=== PATIENT | female | born 1995 | race Caucasian/White ===

== ENCOUNTER → 2016-12-05 | Outpatient (CLI) | payer BC, OTHER ==
[~2016-12-05] MED LIST: PRENTAB9 PO; ZOLO50TA PO
--- NOTE | 2016-12-05 23:28 | REP ---
Clinical: Anatomical evaluation. Comparison: 11/18/2016 . Findings: Examination demonstrates a single live intrauterine in transverse lie (head to maternal left side) presentation. motion is identified by technologist. Placenta is noted posteriorly and grade zero without evidence for placenta previa or abruption. Amniotic fluid volume is normal. Cervix measures 3.7 cm in length and appears closed. No evidence for nuchal cord. Gestational age by LMP 21 weeks 6 days with FERNANDO 04/11/2017 . Gestational age by current measurements 20 weeks 5 days with FERNANDO 04/19/2017 . FHR equals 150 beats per minute. BPD 4.9 20 weeks 5 days HC 18.5 20 weeks 6 days AC 16.3 21 weeks 2 days FL 3.5 21 weeks 0 days HC/AC ratio 1.14 Estimated weight 401 grams ( 22nd percentile). Anatomical assessment demonstrates normal structures including cranium, choroid plexus, cavum, cerebellum/posterior fossa, facial features, lungs, four-chamber heart/ventricular outflow tracts, diaphragm, stomach, cord insertion/three-vessel cord, kidneys/bladder, spine, and extremities. Impression: Live intrauterine in transverse lie. Normal complete anatomical assessment. Signed by Marco Antonio Yee MD 12/05/2016 11:20 P
== END ==
LOC: M WHC 10:29
PROVIDERS: ATTEND Advanced Practice Midwife
DX: Z34.82 Encounter for supervision of other normal pregnancy, second trimester (principal)

== ENCOUNTER 2017-01-20 12:45 | Outpatient (CLI) | payer BC, OTHER ==
[~2017-01-20] VITALS: Ht 165.1 cm; Wt 82.0 kg
[2017-01-20 13:19] VITALS: BP 118/66
[2017-01-20] MEDS ORDERED: PRENTAB9 PO (14:41)
== END 2017-01-20 13:51 | disposition home or self-care (01) ==
LOC: M LDO 12:45
PROVIDERS: ATTEND Advanced Practice Midwife
DX: O26.892 Other specified pregnancy related conditions, second trimester (principal); Z3A.23 23 weeks gestation of pregnancy

== ENCOUNTER 2017-02-04 20:39 | Outpatient (CLI) | payer BC, OTHER ==
[~2017-02-04] VITALS: Ht 165.1 cm; Wt 84.0 kg
[~2017-02-04 20:39] MED LIST changes: -ZOLO50TA PO
[2017-02-04 21:27] VITALS: BP 121/73
[2017-02-04 21:50] VITALS: BP 113/63
[2017-02-04 22:05] VITALS: BP 112/64
== END 2017-02-04 22:12 | disposition home or self-care (01) ==
LOC: M LDO 20:39
PROVIDERS: ATTEND Specialist
DX: O26.893 Other specified pregnancy related conditions, third trimester (principal); Z3A.30 30 weeks gestation of pregnancy

== ENCOUNTER → 2017-02-05 | Outpatient (CLI) | payer BC, OTHER ==
[~2017-02-05] MED LIST changes: +ZOLO50TA PO
[2017-02-05 15:42] LABS: MEAN CORPUSCULAR HEMOGLOBIN 31.2 pg (27.0-33.0); MEAN CORPUSCULAR HGB CONC 32.8 g/dl (32.0-36.5); RED CELL DISTRIBUTION WIDTH 12.4 % (11.5-14.5); WHITE BLOOD COUNT 11.1 K/mm3 (4.0-10.0)
== END ==
LOC: M LAB 14:23
PROVIDERS: ATTEND Obstetrics & Gynecology
DX: Z36 Encounter for antenatal screening of mother (principal); Z3A.00 Weeks of gestation of pregnancy not specified

== ENCOUNTER 2017-02-08 00:18 | Outpatient (CLI) | payer BC, OTHER ==
[~2017-02-08] VITALS: Ht 162.6 cm; Wt 80.0 kg
[~2017-02-08 00:18] MED LIST changes: -ZOLO50TA PO
[2017-02-08 01:00] VITALS: BP 110/68
== END 2017-02-08 01:43 | disposition home or self-care (01) ==
LOC: M LDO 00:18
PROVIDERS: ATTEND Obstetrics & Gynecology
DX: O47.03 False labor before 37 completed weeks of gestation, third trimester (principal); Z3A.31 31 weeks gestation of pregnancy

== ENCOUNTER 2017-02-19 23:08 | Outpatient (CLI) | payer BC, OTHER ==
[~2017-02-19] VITALS: Ht 162.6 cm; Wt 83.0 kg
[2017-02-19] MEDS ORDERED: ZOLO50TA PO (23:15)
[2017-02-19 23:27] VITALS: BP 117/67
== END 2017-02-20 00:18 | disposition home or self-care (01) ==
LOC: M LDO 23:08
PROVIDERS: ATTEND Obstetrics & Gynecology
DX: O47.03 False labor before 37 completed weeks of gestation, third trimester (principal); Z3A.33 33 weeks gestation of pregnancy

== ENCOUNTER 2017-03-02 23:35 | Outpatient (CLI) | payer OTHER ==
[~2017-03-02] VITALS: Ht 162.6 cm; Wt 84.0 kg
[~2017-03-02 23:35] MED LIST changes: +ZOLO50TA PO
[2017-03-02 23:46] VITALS: BP 122/74
[2017-03-03 00:36] LABS: BASO % 0.4 % (0.0-1.0); EOS # 0.2 K/mm3 (0.0-0.50); EOS % 1.5 % (0.0-3.0); LARGE UNSTAINED CELL # 0.2 K/mm3 (0.0-0.4); LARGE UNSTAINED CELL % 1.4 % (0.0-4.0); LYMPH # 2.6 K/mm3 (1.5-6.5); LYMPH % 22.2 % (24.0-44.0); MEAN CORPUSCULAR HEMOGLOBIN 31.1 pg (27.0-33.0); MEAN CORPUSCULAR HGB CONC 32.6 g/dl (32.0-36.5); MEAN CORPUSCULAR VOLUME 95.2 fl (80.0-96.0); MONO # 0.5 K/mm3 (0.0-0.8); MONO % 4.9 % (0.0-5.0); NEUTROPHILS # 7.7 K/mm3 (1.8-7.7); NEUTROPHILS % 69.7 % (36.0-66.0); PLATELET COUNT, AUTOMATED 342 k/mm3 (150-450); RED CELL DISTRIBUTION WIDTH 12.6 % (11.5-14.5)
[2017-03-03 00:44] LABS: INR 0.99
[2017-03-03] MEDS ORDERED: ACETAMINOPHEN 500 MG TAB PO PRN (01:15)
--- NOTE | 2017-03-03 07:58 | REPUSA ---
CLINICAL HISTORY: Pelvic pain. Fall. TECHNIQUE: Realtime sonographic images were obtained in multiple projections via TA approach. The exa mination was performed by the music promoter and still images were submitted for interpretation. COMMENTS: Single, live intrauterine gestation. The estimated gestation age 33 weeks and 2 days. heart rate 157 beats per minute. Amniotic fluid index 10.2 cm. Biophysical profile 07/08. Unremarkable Doppler evaluation of the umbilical cord. Estimated weight is 2053 g. IMPRESSION: Single, live intrauterine gestation. No abnormality seen. Thank you for your kind referral of this patient.
== END 2017-03-03 04:09 | disposition home or self-care (01) ==
LOC: M LDO 23:35
PROVIDERS: ATTEND Advanced Practice Midwife
DX: O99.89 Other specified diseases and conditions complicating pregnancy, childbirth and the puerperium (principal); R10.9 Unspecified abdominal pain; R42 Dizziness and giddiness; W01.198A Fall on same level from slipping, tripping and stumbling with subsequent striking against other object, initial encounter; Y92.099 Unspecified place in other non-institutional residence as the place of occurrence of the external cause; Y93.9 Activity, unspecified; Y99.9 Unspecified external cause status; Z3A.34 34 weeks gestation of pregnancy

== ENCOUNTER 2017-03-08 01:40 | Outpatient (CLI) | payer OTHER ==
[~2017-03-08] VITALS: Ht 162.6 cm; Wt 85.0 kg
[2017-03-08 01:53] VITALS: BP 119/74
[2017-03-08] MEDS ORDERED: PRENTAB9 PO (02:51)
== END 2017-03-08 03:10 | disposition home or self-care (01) ==
LOC: M LDO 01:40
PROVIDERS: ATTEND Obstetrics & Gynecology
DX: O47.03 False labor before 37 completed weeks of gestation, third trimester (principal); Z3A.35 35 weeks gestation of pregnancy

== ENCOUNTER → 2017-03-11 | Outpatient (CLI) | payer BC, OTHER | LOC: M LAB 08:24 | PROVIDERS: ATTEND Obstetrics & Gynecology | DX: Z34.83 Encounter for supervision of other normal pregnancy, third trimester (principal) ==

== ENCOUNTER 2017-03-20 20:13 | Outpatient (CLI) | payer BC, OTHER ==
[~2017-03-20] VITALS: Ht 165.1 cm; Wt 85.0 kg
[~2017-03-20 20:13] MED LIST changes: +PROZ20CA11 PO
[2017-03-20 20:31] VITALS: BP 125/70
[2017-03-20 21:43] VITALS: BP 112/67
== END 2017-03-20 22:00 | disposition home or self-care (01) ==
LOC: M LDO 20:13
PROVIDERS: ATTEND Obstetrics & Gynecology
DX: O47.03 False labor before 37 completed weeks of gestation, third trimester (principal); Z3A.36 36 weeks gestation of pregnancy

== ENCOUNTER → 2017-03-21 | Outpatient (REF) | payer BC, OTHER | LOC: M LAB REF 12:58 | PROVIDERS: ATTEND Advanced Practice Midwife | DX: Z36 Encounter for antenatal screening of mother (principal); Z3A.00 Weeks of gestation of pregnancy not specified ==

== ENCOUNTER 2017-03-30 18:55 | Outpatient (CLI) | payer BC, OTHER ==
[~2017-03-30] VITALS: Ht 165.1 cm; Wt 85.0 kg
[2017-03-30 19:09] VITALS: BP 120/73
== END 2017-03-30 21:05 | disposition home or self-care (01) ==
LOC: M LDO 18:55
PROVIDERS: ATTEND Advanced Practice Midwife
DX: O36.8130 Decreased fetal movements, third trimester, not applicable or unspecified (principal); Z3A.38 38 weeks gestation of pregnancy

== ENCOUNTER 2017-04-02 03:13 | Outpatient (CLI) | payer BC, OTHER ==
[~2017-04-02] VITALS: Ht 165.1 cm; Wt 86.0 kg
[2017-04-02 03:30] VITALS: BP 122/70
[2017-04-02 06:45] VITALS: BP 118/79
[2017-04-03] MEDS ORDERED: ACET50TA PO (18:00)
[2017-04-03] MEDS ORDERED: IBUP-1114 PO (18:02)
== END 2017-04-02 06:50 | disposition home or self-care (01) ==
LOC: M LDO 03:13
PROVIDERS: ATTEND Obstetrics & Gynecology
DX: O62.0 Primary inadequate contractions (principal); Z3A.38 38 weeks gestation of pregnancy

== ENCOUNTER 2017-04-02 09:07 | Inpatient (IN) | payer BC, OTHER ==
[~2017-04-02] VITALS: Ht 165.1 cm; Wt 86.0 kg
[2017-04-02] VITALS (9 sets, daily range): BP systolic 118–159; BP diastolic 67–95
[2017-04-02] MEDS ORDERED: RHOGAM 300 MCG (1500 IU) INJ (J2790) IM SCH (10:15)
[2017-04-02] MEDS ORDERED: DOCUSATE SODIUM 100 MG CAP PO PRN (10:15)
[2017-04-02] MEDS ORDERED: ONDANSETRON 4MG/2ML VIAL (J2405) IV PRN (10:15)
[2017-04-02] MEDS ORDERED: DIBUCAINE 1% OINTMENT 30GM TOP PRN (10:15)
[2017-04-02] MEDS ORDERED: ACETAMINOPHEN 500 MG TAB PO PRN (10:15)
[2017-04-02] MEDS ORDERED: MEASLES,MUMPS,RUBELLA VACCINE INJ (MMR-II) (90707) SC SCH (10:15)
[2017-04-02] MEDS ORDERED: METHYLERGONOVINE MALEATE 0.2 MG TAB PO PRN (10:15)
[2017-04-02] MEDS ORDERED: OXYTOCIN DRIP 30 UNITS in APPROPRIATE DILUENT 1 EA IV ONE (10:30)
--- NOTE | 2017-04-02 10:31 | DN ---
DATE: 04/02/2017 PREDELIVERY DIAGNOSIS: 38 and 5/7 weeks gestation, active labor. POSTDELIVERY DIAGNOSIS: Delivered. PROCEDURE: Spontaneous vaginal delivery. POCKET SETTER: Dr. Rene Spain ANESTHESIA: None. ESTIMATED BLOOD LOSS: 300 mL. FINDINGS: Viable female infant, weight unknown at the time of dictation. DELIVERY SUMMARY: After a short second stage, the patient had spontaneous rupture of membranes. She very quickly progressed to full term spontaneous delivery of a viable female infant. Nuchal cord times three was reduced. Infant cried spontaneously and was handed to the mother. Cord was doubly clamped and cut. Placenta delivered spontaneously and appeared to be intact. The patient received IV Pitocin after delivery of the placenta. There were no vaginal lacerations present. Sponge counts were correct.
[2017-04-02 10:37] LABS: BASO # 0.1 K/mm3 (0.0-0.2); BASO % 0.4 % (0.0-1.0); EOS # 0.1 K/mm3 (0.0-0.50); EOS % 0.9 % (0.0-3.0); LARGE UNSTAINED CELL # 0.2 K/mm3 (0.0-0.4); LARGE UNSTAINED CELL % 1.4 % (0.0-4.0); LYMPH # 2.9 K/mm3 (1.5-6.5); LYMPH % 19.8 % (24.0-44.0); MEAN CORPUSCULAR HEMOGLOBIN 31.7 pg (27.0-33.0); MEAN CORPUSCULAR HGB CONC 33.8 g/dl (32.0-36.5); MEAN CORPUSCULAR VOLUME 93.8 fl (80.0-96.0); MONO # 0.6 K/mm3 (0.0-0.8); MONO % 4.5 % (0.0-5.0); PLATELET COUNT, AUTOMATED 351 k/mm3 (150-450); RED CELL DISTRIBUTION WIDTH 13.2 % (11.5-14.5); WHITE BLOOD COUNT 13.8 K/mm3 (4.0-10.0)
[2017-04-02] MEDS: IBUPROFEN 800 MG TAB PO PRN ×2 (11:04→18:35)
--- NOTE | 2017-04-02 12:19 | HPE ---
DATE OF ADMISSION: 04/02/2017 21-year-old G2, P1 female, 38-5/7 weeks gestation by LMP consistent with 12 week ultrasound, EDC 04/11/2017, presents with regular contractions every 2-3 minutes for the last several hours. Contractions have increased in intensity. COURSE: Patient initiated care at 12 weeks gestation 10/03/2016. Her first trimester blood pressure is 109/60. Her course was significant for worsening depression and anxiety. This was a pre-existing condition. The remainder of course is unremarkable. OBSTETRICAL HISTORY: March 2015 39 week vaginal delivery, 7 pound 4 ounce female infant, no complications. PAST MEDICAL HISTORY: Anxiety and depression. SURGICAL HISTORY: Cyst removed from neck. ALLERGIES: PENICILLIN, TRAMADOL. SOCIAL HISTORY: The father of the baby is involved. Patient smoked occasional cigarette during . She denies alcohol or drug use during . FAMILY HISTORY: Noncontributory. PHYSICAL EXAMINATION: Blood pressure 114/70, weight 195. She appears extremely uncomfortable. Head and neck exam normal. Lungs clear. Heart: Regular rate and rhythm. Abdomen: Nontender, gravid. heart sounds category 1. Cervix 5 cm, 100% effaced, -1 station, vertex, intact. Extremities: Nontender. LABS: Blood type is O positive. Rubella equivocal. RPR nonreactive. Group B Streptococcus (GBS) negative on 03/21/2017. ASSESSMENT: 21-year-old G2, P1 female 38-5/7 weeks gestation who presents in active labor. Patient is admitted on 04/02/2017.
[2017-04-02] MEDS ORDERED: OXYTOCIN INJ 10 UNITS/ML VIAL (J2590) IV STA (12:20)
[2017-04-02 16:48] LABS: METHADONE URINE NEGATIVE (NEGATIVE)
[2017-04-03 06:31] VITALS: BP 118/66
[2017-04-03 09:00] VITALS: BP 104/71
[2017-04-03] MEDS ORDERED: PRENATAL VITAMIN TAB PO SCH (09:00)
[2017-04-03] MEDS: IBUPROFEN 800 MG TAB PO PRN (09:25)
[2017-04-03 17:15] VITALS: BP 118/72
[2017-04-03 18:00] VITALS: BP 118/72
[2017-04-03] MEDS ORDERED: ACET50TA PO (18:00)
[2017-04-03] MEDS ORDERED: IBUP-1114 PO (18:02)
[2017-04-03] MEDS ORDERED: ADACEL/BOOSTRIX VACCINE (DIPHTH/PERTUSS/ACELL/TETANUS)0.5ML SYR (90715) IM ONE (19:30)
== END 2017-04-03 19:50 | disposition home or self-care (01) | DRG 560 ==
LOC: M LDO 09:07 → M LDI 09:18 → M OBS 12:59
PROVIDERS: ADMIT Specialist; ATTEND Specialist
PROC: 10E0XZZ Delivery of Products of Conception, External Approach (ICD-10-PCS; principal; 2017-04-02)
DX: O99.344 Other mental disorders complicating childbirth (principal); F32.9 Major depressive disorder, single episode, unspecified; F41.9 Anxiety disorder, unspecified; Z3A.38 38 weeks gestation of pregnancy; O99.334 Smoking (tobacco) complicating childbirth; F17.210 Nicotine dependence, cigarettes, uncomplicated; O69.82X0 Labor and delivery complicated by other cord entanglement, without compression, not applicable or unspecified; Z37.0 Single live birth

== ENCOUNTER 2017-04-10 23:53 | Emergency (ER) | payer BC, OTHER ==
[~2017-04-10] VITALS: Ht 165.1 cm; Wt 81.6 kg
[~2017-04-10 23:53] MED LIST changes: +ACET50TA PO; +IBUP-1114 PO
[2017-04-11] MEDS ORDERED: ONDANSETRON 4MG/2ML VIAL (J2405) IV ONE ×2 (01:00→06:30)
[2017-04-11] MEDS ORDERED: NS 1,000 ML IV ONE ×2 (01:00→02:30)
[2017-04-11 01:05] LABS: CONTROL LINE UCG INT CTR LINE PRESENT
[2017-04-11 01:36] LABS: BASO # 0.1 K/mm3 (0.0-0.2); BASO % 0.9 % (0.0-1.0); EOS # 0.2 K/mm3 (0.0-0.50); EOS % 2.3 % (0.0-3.0); LARGE UNSTAINED CELL # 0.1 K/mm3 (0.0-0.4); LARGE UNSTAINED CELL % 1.7 % (0.0-4.0); LYMPH # 2.4 K/mm3 (1.5-6.5); LYMPH % 31.3 % (24.0-44.0); MEAN CORPUSCULAR HEMOGLOBIN 31.2 pg (27.0-33.0); MEAN CORPUSCULAR VOLUME 97.4 fl (80.0-96.0); MONO # 0.3 K/mm3 (0.0-0.8); MONO % 4.3 % (0.0-5.0); NEUTROPHILS # 4.6 K/mm3 (1.8-7.7); NEUTROPHILS % 59.5 % (36.0-66.0); PLATELET COUNT, AUTOMATED 452 k/mm3 (150-450); RED CELL DISTRIBUTION WIDTH 12.6 % (11.5-14.5); WHITE BLOOD COUNT 7.7 K/mm3 (4.0-10.0)
[2017-04-11 01:59] LABS: ALBUMIN 3.3 GM/DL (3.2-5.2); ALBUMIN/GLOBULIN RATIO 0.92 (1.00-1.93); ALKALINE PHOSPHATASE 106 U/L (45-117); ALT/SGPT 18 U/L (12-78); ANION GAP 6 MEQ/L (8-16); AST/SGOT 8 U/L (15-37); BILIRUBIN,DIRECT < 0.1 MG/DL (0.0-0.2); BILIRUBIN,TOTAL 0.3 MG/DL (0.2-1.0); BLOOD UREA NITROGEN 13 MG/DL (7-18); CALCIUM LEVEL 8.7 MG/DL (8.5-10.1); CARBON DIOXIDE LEVEL 27 MEQ/L (21-32); CHLORIDE LEVEL 110 MEQ/L (98-107); CREATININE FOR GFR 0.65 MG/DL (0.55-1.02); GLOMERULAR FILTRATION RATE > 60.0 (>60); GLUCOSE, FASTING 77 MG/DL (70-105); POTASSIUM SERUM 3.8 MEQ/L (3.5-5.1); SODIUM LEVEL 143 MEQ/L (136-145); TOTAL PROTEIN 6.9 GM/DL (6.4-8.2)
[2017-04-11] MEDS ORDERED: KETOROLAC 30 MG/ML VIAL (J1885) IV ONE (02:15)
--- NOTE | 2017-04-11 02:50 | REPUSA ---
CLINICAL HISTORY: Abdominal pain. TECHNIQUE: Multiple axial, sagittal and coronal CT images were obtained through the abdomen and pelvi s without administration of oral or IV contrast material. COMMENTS: The liver is of uniform attenuation without mass or defect. There is no intra or extrahepatic biliary ductal dilatation. The spleen is normal. The gallbladder is within normal limits. The pancreas is of normal contour and attenuation characteristics. There is no evidence of adrenal mass. Bilateral nonobstructing renal stones ranging in size between 2 and 4 mm. 4.2 mm obstructing stone of the left ureter at L3 level. Mild left hydroureteronephrosis. There is no evidence for appendicitis. There is no bowel wall thickening. No evidence for small or la rge bowel obstruction. There is no evidence of abdominal ascites or lymphadenopathy. There is no evidence of intrinsic or extrinsic bladder mass. Thickening of the lower of the bladder. There is no pelvic ascites or lymphadenopathy. Fat containing umbilical hernia without incarceration. Enlarged uterus. Images of the lung bases show no evidence of pleural or parenchymal mass. There are no pleural effusi ons. The bony structures are free of lytic or blastic lesions. IMPRESSION: Bilateral nephrolithiasis. Obstructing stone of the proximal left ureter. Enlarged uterus. Thank you for your kind referral of this patient.
[2017-04-11] MEDS ORDERED: HYDROmorphone HCL 1 MG/ML SYRINGE (J1170) IV ONE ×2 (05:00→05:45)
[2017-04-11] MEDS ORDERED: ONDANSETRON 4MG/2ML VIAL (J2405) As Ordered ONE (06:22)
[2017-04-11] MEDS ORDERED: PERC5TAB6 PO (07:50)
[2017-04-11] MEDS ORDERED: FLOM5CAP PO (07:50)
--- NOTE | 2017-04-11 07:55 | SMCUROLCON ---
Urology Consultation General Date of Consultation 04/11/17 Reason For Consultation This patient is seen for Abd Pain. History of Present Illness This is a 21 y/o F w/ a PMH significant for nephrolithiasis (passed a stone 7 years ago) and uncomplicated vaginal delivery 7 days ago, who presented to the ER last night w/ acute onset left flank pain. A CT A/P was performed and was notable for a 3.4mm proximal left ureteral stone w/ mild hydronephrosis. No other stones were seen. She denies fevers or chills. She denies dysuria. She has mild nausea but no vomiting. They had some difficulty managing her pain o/n , but when I examined her she noted her pain was much better. Past Medical History Medical History see HPI Surgical Hstory cyst removal from neck Medications Current Medications Current Medications Home Med (Med Rec Complete!) ASDIRECTED XX ; Start 04/11/17 at 06:30; Stop 11/16 at 06:30; Status DC Allergies Allergies: Coded Allergies: Atropine (Verified Allergy, Intermediate, UNKNOWN, 03/20/17) RASH, FEVER & SYNCOPE Tramadol (Verified Allergy, Intermediate, UNKNOWN, 03/20/17) SEVERE VOMITING Hyoscyamine (Verified Allergy, Unknown, UNKNOWN, 03/20/17) RASH, FEVER & SYNCOPE Phenobarbital (Verified Allergy, Unknown, UNKNOWN, 03/20/17) RASH, FEVER & SYNCOPE Scopolamine (Verified Allergy, Unknown, UNKNOWN, 03/20/17) RASH, FEVER & SYNCOPE Penicillins (Verified Adverse Reaction, Intermediate, 03/20/17) HIVES Review of Systems General: Denies: Fatigue, Malaise Constitutional: Denies: Fever, Chills, Sweats, Weakness, Malaise Eyes: Denies: Pain, Vision change Skin: Denies: Rash, Lesions, Breakdown, Nail Changes Pulmonary: Denies: Dyspnea, Cough Cardiovascular: Denies Chest Pain, Denies Palpitations Gastrointestinal: Reports: Nausea, Abdominal Pain (mild left abdominal pain), Denies: Vomiting Genitourinary: Denies: Dysuria, Frequency, Incontinence, Hematuria Musculoskeletal: Reports: Back Pain (left flank pain) Neurological: Denies: Weakness, Numbness, Incoordination, Change in Speech Psych: Reports: Mood Normal Physical Examination General Exam: Alert, Cooperative, No Acute Distress ENT EXAM: Atraumatic Chest Exam: Clear to auscultation Heart Exam: Rate Normal, Regular Rhythm Abdomen Exam: Soft, Tenderness (mild left sided tenderness) Skin Exam: Nl turgor and temperature Neuro Exam: Normal Speech Psych Exam: Mental status NL, Mood NL Vital Signs/I&O Vital Signs Date Time Temp Pulse Resp B/P (MAP) Pulse Ox O2 Delivery O2 Flow Rate FiO2 04/11/17 07:31 70 16 106/59 (75) 99 Room Air 04/11/17 00:10 97.8 I&O- Last 24 Hours up to 6 AM 04/11/17 06:00 Intake Total 2000 ml Balance 2000 ml Laboratory Data 24H Labs Laboratory Tests 2 04/11/17 00:27: Urine Appearance CLEAR, Urine Color YELLOW, Urine pH 6.0, Urine Specific [place] 1.011, Urine Protein NEGATIVE, Urine Glucose (UA) NEGATIVE, Urine Ketones NEGATIVE, Urine Urobilinogen 0.2, Urine Bilirubin NEGATIVE, Urine Leukocyte Esterase NEGATIVE, Urine Blood 3+H, Urine Nitrite NEGATIVE, Urine WBC (Auto) 2, Urine RBC (Auto) TNTCH, Urine Hyaline Casts (Auto) 0, Urine Bacteria ( Auto) 1+H, Urine Squamous Epithelial Cells 0, Urine Mucus (Auto) SMALL, Urine Sperm (Auto) , Urine Test POSITIVEA 04/11/17 01:19: White Blood Count 7.7, Red Blood Count 4.05, Hemoglobin 12.6, Hematocrit 39.5, Mean Corpuscular Volume 97.4H, Mean Corpuscular Hemoglobin 31.2, Mean Corpuscular Hemoglobin Concent 32.0, Red Cell Distribution Width 12.6, Platelet Count 452H, Neutrophils (%) (Auto) 59.5, Lymphocytes (%) (Auto) 31.3, Monocytes (%) (Auto) 4.3, Eosinophils (%) (Auto) 2.3, Basophils (%) (Auto) 0.9, Neutrophils # (Auto) 4.6, Lymphocytes # (Auto) 2.4, Monocytes # (Auto) 0.3, Eosinophils # (Auto) 0.2, Basophils # (Auto) 0.1, Large Unclassified Cells % 1.7 , Large Unclassified Cells # 0.1, Anion Gap 6L, Glomerular Filtration Rate > 60.0, Calcium Level 8.7, Aspartate Amino Transf (AST/SGOT) 8L, Alanine Aminotransferase (ALT/SGPT) 18, Alkaline Phosphatase 106, Total Bilirubin 0.3, Direct Bilirubin < 0.1, Total Protein 6.9, Albumin 3.3, Albumin/Globulin Ratio 0.92L, Lipase 120 CBC/BMP Laboratory Tests 04/11/17 01:19 Red Blood Count 4.05, Mean Corpuscular Volume 97.4 H, Mean Corpuscular Hemoglobin 31.2, Mean Corpuscular Hemoglobin Concent 32.0, Red Cell Distribution Width 12.6, Neutrophils (%) (Auto) 59.5, Lymphocytes (%) (Auto) 31.3, Monocytes (%) (Auto) 4.3, Eosinophils (%) (Auto) 2.3, Basophils (%) (Auto ) 0.9, Neutrophils # (Auto) 4.6, Lymphocytes # (Auto) 2.4, Monocytes # (Auto) 0.3, Eosinophils # (Auto) 0.2, Basophils # (Auto) 0.1 Microbiology Microbiology 04/11/17 Urine Culture, Received Pending Assessment This is a 21 y/o F w/ a 3.4mm proximal left ureteral stone w/ mild hydro. Her pain is controlled. Her WBC and UA do not appear concerning for an infection. Her Cr is near its baseline. I discussed the likelihood that she can pass this stone w/o surgical intervention. I recommended aggressive hydration and that she start taking flomax daily and pain medication as needed. I also recommended that she strain her urine. She is agreeable and wants to go home. Plan - ok to discharge patient home - please send home w/ flomax to take for 2 wks and percocet to take prn - encourage the patient to drink plenty of water - please provide a urine strainer - the urology office will schedule a follow up appt for the patient to be seen in 1-2 weeks KEO MARK MD April 11, 2017 07:55
[2017-04-11 08:06] VITALS: BP 107/64
== END 2017-04-11 08:07 | disposition home or self-care (01) ==
LOC: M ED 04-11 02:04
DX: O90.89 Other complications of the puerperium, not elsewhere classified (principal); N20.1 Calculus of ureter; N13.4 Hydroureter; R11.0 Nausea; O99.345 Other mental disorders complicating the puerperium; F43.10 Post-traumatic stress disorder, unspecified; O99.335 Smoking (tobacco) complicating the puerperium; F17.200 Nicotine dependence, unspecified, uncomplicated; Z88.8 Allergy status to other drugs, medicaments and biological substances; Z88.5 Allergy status to narcotic agent; Z88.0 Allergy status to penicillin
CPT/HCPCS: 36415; 74176; 80048; 80076; 81001; 83690; 84703; 85025; 87086; 96374; 96375; 96376; 99283; J1170; J1885; J2405

== ENCOUNTER → 2017-05-07 | Outpatient (CLI) | payer BC, OTHER ==
[~2017-05-07] MED LIST changes: +CIPR500T89 PO; +FLOM5CAP PO; +KETO10TAB PO; +NEXP1IMP SC; +NORCOTAB PO; +OMEP40CA2 PO; +PERC5TAB6 PO; +SERO1TAB PO; +SUCR1TA PO; +WELLTAB38 PO
[2017-05-07 15:24] LABS: MEAN CORPUSCULAR HEMOGLOBIN 30.8 pg (27.0-33.0); MEAN CORPUSCULAR HGB CONC 32.5 g/dl (32.0-36.5); MEAN CORPUSCULAR VOLUME 94.7 fl (80.0-96.0); RED CELL DISTRIBUTION WIDTH 12.6 % (11.5-14.5); WHITE BLOOD COUNT 6.7 K/mm3 (4.0-10.0)
[2017-05-07 15:33] LABS: INR 1.01
[2017-05-07 16:07] LABS: ANION GAP 5 MEQ/L (8-16); BLOOD UREA NITROGEN 7 MG/DL (7-18); CALCIUM LEVEL 8.5 MG/DL (8.5-10.1); CARBON DIOXIDE LEVEL 28 MEQ/L (21-32); CHLORIDE LEVEL 108 MEQ/L (98-107); CREATININE FOR GFR 0.85 MG/DL (0.55-1.02); GLOMERULAR FILTRATION RATE > 60.0 (>60); GLUCOSE, FASTING 75 MG/DL (70-105); POTASSIUM SERUM 4.2 MEQ/L (3.5-5.1); SODIUM LEVEL 141 MEQ/L (136-145)
== END ==
LOC: M LAB 14:24
PROVIDERS: ATTEND Nurse Practitioner Family
DX: N20.0 Calculus of kidney (principal)

== ENCOUNTER 2017-05-09 23:26 | Emergency (ER) | payer BC, OTHER ==
[~2017-05-09] VITALS: Ht 165.1 cm; Wt 79.8 kg
[~2017-05-09 23:26] MED LIST changes: -CIPR500T89 PO; -CONRAY-60 60% 50ML VIAL (Q9961) As Ordered ONE; -HYDROmorphone HCL 1 MG/ML SYRINGE (J1170) As Ordered ONE; -KETO10TAB PO; -KETOROLAC 30 MG/ML VIAL (J1885) IV PRN; -LR 1,000 ML IV SCH; -LevoFLOXacin IV 500 MG in APPROPRIATE DILUENT 1 EA IV ONE; -MEPERIDINE INJ 25 MG/ML VIAL (J2175) IV PRN; -METOCLOPRAMIDE INJ 10MG/2ML VIAL (J2765) IV PRN; -MIDAZOLAM INJ 2 MG/2 ML VIAL (J2250) As Ordered ONE; -MORPHINE 2 MG/ML 1ML SYRINGE As Ordered ONE; -NORCOTAB PO; -ONDANSETRON 4MG/2ML VIAL (J2405) As Ordered ONE; -ONDANSETRON 4MG/2ML VIAL (J2405) IV PRN; -PERCOCET 5MG/325MG TAB PO PRN; -PROPOFOL 200 MG/20 ML VIAL As Ordered ONE; -dexameTHASONE 4 MG/ML 1ML VIAL (J1100) As Ordered ONE; -fentaNYL 100 MCG/2 ML INJECTION (J3010) As Ordered ONE; -fentaNYL 100 MCG/2 ML INJECTION (J3010) IV PRN
[2017-05-09 23:27] VITALS: BP 127/86
[2017-05-10] MEDS ORDERED: NS 1,000 ML IV ONE (00:15)
[2017-05-10] MEDS ORDERED: KETOROLAC 30 MG/ML VIAL (J1885) IV ONE (00:30)
[2017-05-10] MEDS ORDERED: MORPHINE 4 MG/ML 1ML SYRINGE IV ONE (00:30)
[2017-05-10] MEDS ORDERED: KETO10TAB PO (01:19)
[2017-05-10] MEDS ORDERED: ONDANSETRON 4MG/2ML VIAL (J2405) IV ONE (01:30)
--- NOTE | 2017-05-10 08:48 | REP ---
Supine abdomen single AP view: Comparison is the acute abdominal series dated 01/02/2011. The bowel gas pattern is normal. There are no calcifications. The skeletal structures and soft tissues are otherwise unremarkable. Impression: Normal bowel gas pattern. Signed by Colton Mercedes MD 05/10/2017 08:39 A
[2017-05-10] MEDS ORDERED: CIPR500T89 PO (22:13)
[2017-05-10] MEDS ORDERED: NORCOTAB PO (22:13)
== END 2017-05-10 01:37 | disposition home or self-care (01) ==
LOC: M ED 05-10 00:50
DX: G89.18 Other acute postprocedural pain (principal); F17.200 Nicotine dependence, unspecified, uncomplicated; Z79.899 Other long term (current) drug therapy; Z88.8 Allergy status to other drugs, medicaments and biological substances; Z88.5 Allergy status to narcotic agent; Z88.0 Allergy status to penicillin
CPT/HCPCS: 74000; 96374; 96375; 99282; J1885; J2405

== ENCOUNTER → 2017-05-09 | Day surgery (SDC) | payer BC, OTHER ==
[~2017-05-09] VITALS: Ht 165.1 cm; Wt 81.6 kg
[~2017-05-09] MED LIST changes: +CONRAY-60 60% 50ML VIAL (Q9961) As Ordered ONE; +HYDROmorphone HCL 1 MG/ML SYRINGE (J1170) As Ordered ONE; +KETOROLAC 30 MG/ML VIAL (J1885) IV PRN; +LR 1,000 ML IV SCH; +LevoFLOXacin IV 500 MG in APPROPRIATE DILUENT 1 EA IV ONE; +MEPERIDINE INJ 25 MG/ML VIAL (J2175) IV PRN; +METOCLOPRAMIDE INJ 10MG/2ML VIAL (J2765) IV PRN; +MIDAZOLAM INJ 2 MG/2 ML VIAL (J2250) As Ordered ONE; +MORPHINE 2 MG/ML 1ML SYRINGE As Ordered ONE; +ONDANSETRON 4MG/2ML VIAL (J2405) As Ordered ONE; +ONDANSETRON 4MG/2ML VIAL (J2405) IV PRN; +PERCOCET 5MG/325MG TAB PO PRN; +PROPOFOL 200 MG/20 ML VIAL As Ordered ONE; +dexameTHASONE 4 MG/ML 1ML VIAL (J1100) As Ordered ONE; +fentaNYL 100 MCG/2 ML INJECTION (J3010) As Ordered ONE; +fentaNYL 100 MCG/2 ML INJECTION (J3010) IV PRN
[2017-05-09 11:05] LABS: CONTROL LINE UCG INT CTR LINE PRESENT
[2017-05-09] MEDS: fentaNYL 100 MCG/2 ML INJECTION (J3010) IV PRN ×4 (12:25→12:47)
[2017-05-09] MEDS: PERCOCET 5MG/325MG TAB PO PRN ×2 (12:38→13:09)
[2017-05-09] MEDS: MORPHINE 2 MG/ML 1ML SYRINGE IV PRN ×2 (12:58→13:08)
--- NOTE | 2017-05-09 13:03 | REP ---
C-ARM VIEW DURING RETROGRADE PYELOGRAM: Single AP view of the abdomen demonstrates a catheter in the left ureter. Contrast is injected into the left ureter partially opacifying the left pelvicalyceal system. 12 seconds of fluoroscopy time utilized. Signed by Colton Fields MD 05/09/2017 04:51 P
[2017-05-09] MEDS: HYDROmorphone HCL 1 MG/ML SYRINGE (J1170) IV PRN ×2 (13:20→13:28)
[2017-05-09 14:25] VITALS: BP 116/73
--- NOTE | 2017-05-09 22:13 | RO ---
DATE OF PROCEDURE: 05/09/2017 PREPROCEDURE DIAGNOSIS: Left ureteral stone. POSTPROCEDURE DIAGNOSIS: Left ureteral stone. PROCEDURE: Cystoscopy, left ureteroscopy, left retrograde pyelogram with intraoperative interpretation of images. SURGEON: Dr. Eliu Wiseman FLAKE [employer] SHRED ROLL OPERATOR: None. ANESTHESIA: General. OPERATIVE INDICATIONS: This is a 21-year-old female who was recently seen in the emergency room for an obstruction, proximal left ureteral stone. She was given a trial of passage, yet she continued to have moderate left flank pain, raising concern she was not going to pass the stone. It was, therefore, recommended she be brought to the operating room today for the above listed procedure. DESCRIPTION OF PROCEDURE: The patient was brought to the operating room and general anesthesia was induced. Prophylactic antibiotics were infused. She was then placed in the dorsal lithotomy position and prepped and draped in the usual sterile fashion. A rigid cystoscope was then inserted into the urethral meatus and advanced to the bladder. A guidewire was then advanced up the left collecting system. We then went up the left collecting system with a flexible ureteroscope and no stones were seen within the left ureter. The kidney was thoroughly examined and a few tiny stones measuring around 1 mm in size were seen but no larger stones were seen. I then pulled the ureteroscope back down the ureter and examined the ureter thoroughly again and once again did not see any stones. A retrograde pyelogram was performed, and it was negative for hydronephrosis or extravasation. At this point, the ureteroscope was removed and since there was no hydronephrosis, the decision was made not to leave a stent. The wire was, therefore, removed and this marked the conclusion of the procedure. The bladder was emptied of all fluids, and the patient was then taken out of the dorsal lithotomy position, awakened from anesthesia and transported to the recovery room in stable condition. Estimated blood loss: 0 mL. Complications: None. Specimens: None. PLAN: The patient will followup in the clinic in a few weeks for a postoperative visit.
== END | disposition home or self-care (01) ==
LOC: M SDC 10:34
PROVIDERS: ATTEND Urology
DX: N20.1 Calculus of ureter (principal); F43.10 Post-traumatic stress disorder, unspecified; K25.9 Gastric ulcer, unspecified as acute or chronic, without hemorrhage or perforation; F41.9 Anxiety disorder, unspecified; O90.6 Postpartum mood disturbance; Z88.0 Allergy status to penicillin; Z88.5 Allergy status to narcotic agent; Z88.8 Allergy status to other drugs, medicaments and biological substances; Z79.899 Other long term (current) drug therapy; Z72.0 Tobacco use
CPT/HCPCS: 52000; 74420; 84703; C1726; C1894; J1100; J1170; J1885; J1956; J2250; J2405; J3010; Q9961

== ENCOUNTER 2017-05-10 17:24 | Emergency (ER) | payer BC, OTHER ==
[~2017-05-10] VITALS: Ht 165.1 cm; Wt 79.8 kg
[~2017-05-10 17:24] MED LIST changes: +KETO10TAB PO
--- NOTE | 2017-05-10 18:10 | ED PDOC ---
Post-Departure Follow-Up PT PRESENTS TO THE ED TODAY STATING LEFT FLANK PAIN THAT IS WORSE SINCE HER SURGERY YESTERDAY. PT HAD PYELOGRAM TO REMOVE A STONE WITH UROLOGY YESTERDAY, "AND I THINK THE DOCTOR MISSED IT BECAUSE HE SAID THERE WASN'T A STONE." STATES CALLED THE ON-CALL PROVIDER, DR. CASTANO, AND WAS TOLD TO COME TO THE ER FOR A CT SCAN TO LOOK FOR THE STONE THAT WAS MISSED YESTERDAY. PT STATES SHE HAS NOT URINATED SINCE YESTERDAY AND HAS BEEN DRINKING "A LOT" OF WATER TODAY. MENA CURIEL PA-C May 10, 2017 18:10
[2017-05-10] MEDS ORDERED: KETOROLAC 30 MG/ML VIAL (J1885) IV ONE (18:15)
[2017-05-10] MEDS ORDERED: MORPHINE 4 MG/ML 1ML SYRINGE IV ONE (18:30)
[2017-05-10] MEDS ORDERED: ONDANSETRON 4MG/2ML VIAL (J2405) IV ONE (18:30)
[2017-05-10 19:27] LABS: ANION GAP 7 MEQ/L (8-16); BASO % 0.2 % (0.0-1.0); BLOOD UREA NITROGEN 9 MG/DL (7-18); CALCIUM LEVEL 8.6 MG/DL (8.5-10.1); CARBON DIOXIDE LEVEL 25 MEQ/L (21-32); CHLORIDE LEVEL 112 MEQ/L (98-107); CREATININE FOR GFR 0.96 MG/DL (0.55-1.02); EOS % 0.3 % (0.0-3.0); GLOMERULAR FILTRATION RATE > 60.0 (>60); GLUCOSE, FASTING 106 MG/DL (70-105); LARGE UNSTAINED CELL # 0.1 K/mm3 (0.0-0.4); LARGE UNSTAINED CELL % 1.1 % (0.0-4.0); LYMPH # 2.7 K/mm3 (1.5-6.5); LYMPH % 23.7 % (24.0-44.0); MEAN CORPUSCULAR HEMOGLOBIN 30.5 pg (27.0-33.0); MEAN CORPUSCULAR HGB CONC 32.5 g/dl (32.0-36.5); MEAN CORPUSCULAR VOLUME 93.8 fl (80.0-96.0); MONO # 0.5 K/mm3 (0.0-0.8); MONO % 4.4 % (0.0-5.0); NEUTROPHILS # 7.7 K/mm3 (1.8-7.7); NEUTROPHILS % 70.4 % (36.0-66.0); PLATELET COUNT, AUTOMATED 379 k/mm3 (150-450); POTASSIUM SERUM 3.9 MEQ/L (3.5-5.1); RED CELL DISTRIBUTION WIDTH 13.2 % (11.5-14.5); SODIUM LEVEL 144 MEQ/L (136-145)
--- NOTE | 2017-05-10 19:30 | REPUSA ---
CLINICAL HISTORY: Left flank pain. TECHNIQUE: Multiple axial CT images were obtained through the abdomen and pelvis without administrat ion of oral or IV contrast material. COMPARISON: Correlation is made with a prior study dated 04/11/2017. COMMENTS: The liver is of uniform attenuation without mass or defect. There is no intra or extrahepatic biliar y ductal dilatation. The spleen is normal. The gallbladder is within normal limits. The pancreas i s of normal contour and attenuation characteristics. There is no evidence of adrenal mass. The kidneys are normal in size, shape and configuration. There is no hydroureter or hydronephrosis. Previously noted bilateral renal calculi are no longer identified. Small fat containing umbilical h ernia is seen. There is no evidence for appendicitis. There is no bowel wall thickening. No evidence for small or large bowel obstruction. There is no evidence of abdominal ascites or lymphadenopathy. Several bubbles of air are present within the bladder. This may represent recent instrumentation carl aura cystitis. There is no pelvic ascites or lymphadenopathy. Images of the lung bases show no evidence of pleural or parenchymal mass. There are no pleural effus ions. The bony structures are free of lytic or blastic lesions. IMPRESSION: 1. No evidence of renal or ureteral calculi at this time. 2. Air within the bladder. This may represent recent instrumentation versus cystitis. Thank you for your kind referral of this patient. We appreciate the opportunity to participate in thi s patient's care.
[2017-05-10] MEDS ORDERED: OXYCODONE/APAP 5MG/325MG(BULK FOR ED) 1 TABLET PO ONE (20:00)
[2017-05-10] MEDS ORDERED: NS 1,000 ML IV ONE (20:15)
[2017-05-10] MEDS ORDERED: NORCO, ANEXSIA 5/325MG TABLET (HYDROcodone/ACETAMINOPHEN) PO ONE (22:00)
[2017-05-10 22:04] LABS: CALCIUM OXALATE CRYSTALS SMALL
[2017-05-10] MEDS ORDERED: NORCOTAB PO (22:13)
[2017-05-10] MEDS ORDERED: CIPR500T89 PO (22:13)
[2017-05-10] MEDS ORDERED: CIPROFLOXACIN 500 MG TAB PO ONE (22:15)
[2017-05-10 22:30] VITALS: BP 120/60
== END 2017-05-10 22:32 | disposition home or self-care (01) ==
LOC: M ED 17:49
DX: N30.00 Acute cystitis without hematuria (principal); F41.9 Anxiety disorder, unspecified; F32.9 Major depressive disorder, single episode, unspecified; Z87.442 Personal history of urinary calculi; Z88.8 Allergy status to other drugs, medicaments and biological substances; Z88.0 Allergy status to penicillin; Z88.5 Allergy status to narcotic agent
CPT/HCPCS: 74176; 80048; 81001; 85025; 87086; 96361; 96374; 96375; 99283; J1885; J2405

== ENCOUNTER 2017-08-27 03:33 | Emergency (ER) | payer BC, OTHER ==
[~2017-08-27] VITALS: Ht 165.1 cm; Wt 79.5 kg
[~2017-08-27 03:33] MED LIST changes: +CIPR-249 PO; +NORCOTAB PO; +PERC5TAB12 PO; -PERC5TAB6 PO
[2017-08-27 03:41] VITALS: BP 132/83
[2017-08-27] MEDS ORDERED: methylPREDNISolone INJ 125 MG/2 ML VIAL (J2930) IM ONE (04:00)
== END 2017-08-27 04:26 | disposition home or self-care (01) ==
LOC: M ED 03:33
DX: S60.561A Insect bite (nonvenomous) of right hand, initial encounter (principal); X58.XXXA Exposure to other specified factors, initial encounter; Y92.89 Other specified places as the place of occurrence of the external cause; Y93.89 Activity, other specified; Y99.8 Other external cause status; F33.9 Major depressive disorder, recurrent, unspecified; Z79.899 Other long term (current) drug therapy; Z88.5 Allergy status to narcotic agent; Z88.0 Allergy status to penicillin; Z88.8 Allergy status to other drugs, medicaments and biological substances
CPT/HCPCS: 96372; 99284; J2930

== ENCOUNTER 2017-09-05 14:30 | Emergency (ER) | payer BC ==
[~2017-09-05] VITALS: Ht 165.1 cm; Wt 79.5 kg
[2017-09-05] MEDS ORDERED: LIDOCAINE 1% MDV 20ML VIAL SC ONE (17:15)
--- NOTE | 2017-09-05 19:10 | REPUSA ---
Clinical history: IUD placement. Findings: Real-time transabdominal and transvaginal ultrasound images of the pelvis were obtained. An anteverted uterus is noted, measuring 7.7 x 3.9 x 5.8 cm. The uterus demonstrates normal echotexture and echogenicity. The endometrial stripe is within normal limits. IUD is in place. The right ovary m easures 3.3 x 2.5 x 3.2 cm. The left ovary measures 2.7 x 2.0 x 2.1 cm. No adnexal masses are seen. C olor Doppler flow is seen within both ovaries. There is no evidence of free fluid. Impression: Unremarkable ultrasound examination of the pelvis. IUD is in normal position.
[2017-09-05] MEDS ORDERED: IBUP-1022 PO (19:23)
[2017-09-05] MEDS ORDERED: BACT800T5 PO (19:23)
[2017-09-05] MEDS ORDERED: NORCO, ANEXSIA 5/325MG TABLET (HYDROcodone/ACETAMINOPHEN) PO ONE (19:30)
[2017-09-05 19:37] VITALS: BP 139/71
== END 2017-09-05 19:40 | disposition home or self-care (01) ==
LOC: M ED 14:30 → EEVIPCON 14:30 → M ED 19:40
DX: L02.412 Cutaneous abscess of left axilla (principal); L72.3 Sebaceous cyst; F17.210 Nicotine dependence, cigarettes, uncomplicated; Z88.8 Allergy status to other drugs, medicaments and biological substances; Z88.5 Allergy status to narcotic agent; Z88.0 Allergy status to penicillin

== ENCOUNTER 2017-10-10 17:11 | Emergency (ER) | payer BC ==
[~2017-10-10] VITALS: Ht 165.1 cm; Wt 86.3 kg
[~2017-10-10 17:11] MED LIST changes: +BACT800T5 PO; +IBUP-1022 PO
[2017-10-10] MEDS ORDERED: NS 1,000 ML IV ONE (18:15)
[2017-10-10] MEDS ORDERED: ONDANSETRON 4MG/2ML VIAL (J2405) IV ONE (18:15)
[2017-10-10] MEDS ORDERED: MORPHINE 4 MG/ML 1ML SYRINGE IV PRN (18:15)
[2017-10-10 18:34] LABS: BASO # 0.1 10^3/uL (0.0-0.2); BASO % 0.7 % (0.0-1.0); EOS # 0.1 10^3/uL (0.0-0.50); EOS % 1.2 % (0.0-3.0); IMMATURE GRANULOCYTE % 0.2 % (0-0); LYMPH # 2.2 10^3/uL (1.5-6.5); LYMPH % 27.1 % (24.0-44.0); MEAN CORPUSCULAR HEMOGLOBIN 30.6 pg (27.0-33.0); MEAN CORPUSCULAR HGB CONC 32.6 g/dl (32.0-36.5); MEAN CORPUSCULAR VOLUME 93.6 fl (80.0-96.0); MONO # 0.5 10^3/uL (0.0-0.8); MONO % 5.5 % (0.0-5.0); NEUTROPHILS # 5.4 10^3/uL (1.8-7.7); NEUTROPHILS % 65.3 % (36.0-66.0); PLATELET COUNT, AUTOMATED 397 10^3/uL (150-450); WHITE BLOOD COUNT 8.2 10^3/uL (4.0-10.0)
[2017-10-10 18:57] LABS: ALBUMIN 4.3 GM/DL (3.2-5.2); ALBUMIN/GLOBULIN RATIO 1.34 (1.00-1.93); ALKALINE PHOSPHATASE 97 U/L (45-117); ALT/SGPT 21 U/L (12-78); ANION GAP 7 MEQ/L (8-16); AST/SGOT 10 U/L (7-37); BILIRUBIN,DIRECT 0.1 MG/DL (0.0-0.2); BILIRUBIN,TOTAL 0.4 MG/DL (0.2-1.0); BLOOD UREA NITROGEN 9 MG/DL (7-18); CALCIUM LEVEL 9.3 MG/DL (8.5-10.1); CARBON DIOXIDE LEVEL 28 MEQ/L (21-32); CHLORIDE LEVEL 105 MEQ/L (98-107); CREATININE FOR GFR 0.69 MG/DL (0.55-1.02); GLOMERULAR FILTRATION RATE > 60.0 (>60); GLUCOSE, FASTING 85 MG/DL (70-105); POTASSIUM SERUM 3.9 MEQ/L (3.5-5.1); SODIUM LEVEL 140 MEQ/L (136-145); TOTAL PROTEIN 7.5 GM/DL (6.4-8.2)
--- NOTE | 2017-10-10 19:50 | REPUSA ---
CT of the abdomen and pelvis without contrast Clinical statement: Pain. Technique: Multiple axial CT images were obtained from the base of the lungs to the floor of the pelv is utilizing 5 mm axial slices without administration of contrast. Coronal and sagittal reconstructio ns were also obtained. Comparison: 05/10/2017. Findings: Chest: The visualized lung bases are clear. Abdomen: The kidneys are normal in size bilaterally. There is no evidence of hydronephrosis or nephro lithiasis. The liver, spleen, pancreas, gallbladder and adrenal glands are unremarkable. The aorta de monstrates normal caliber and contour. There is no abdominal lymphadenopathy or ascites. Pelvis: The bowel is unremarkable, with no obstructive or inflammatory changes. The appendix is margaret l. The urinary bladder is within normal limits. There is no pelvic lymphadenopathy or ascites. IUD is in place. The other pelvic structures appear unremarkable. Bones: There are no suspicious osseous abnormalities seen. Impression: Unremarkable CT examination of the abdomen and pelvis.
[2017-10-10] MEDS ORDERED: ZOFR4TAB3 PO (20:23)
[2017-10-10 20:34] VITALS: BP 105/6
== END 2017-10-10 20:36 | disposition home or self-care (01) ==
LOC: M ED 17:11
DX: R10.9 Unspecified abdominal pain (principal); F17.210 Nicotine dependence, cigarettes, uncomplicated; Z88.8 Allergy status to other drugs, medicaments and biological substances; Z88.5 Allergy status to narcotic agent; Z88.0 Allergy status to penicillin
CPT/HCPCS: 74176; 80048; 80076; 81001; 81025; 83690; 85025; 87086; 96374; 96375; 99284; J2405

== ENCOUNTER 2017-10-12 00:42 | Emergency (ER) | payer BC ==
[~2017-10-12] VITALS: Ht 165.1 cm; Wt 86.3 kg
[~2017-10-12 00:42] MED LIST changes: +ZOFR4TAB3 PO
[2017-10-12 00:48] VITALS: BP 129/69
[2017-10-12] MEDS ORDERED: MORPHINE 4 MG/ML 1ML SYRINGE IV ONE (01:45)
[2017-10-12] MEDS ORDERED: NS 1,000 ML IV ONE (01:45)
[2017-10-12 01:53] LABS: BASO # 0.1 10^3/uL (0.0-0.2); BASO % 0.6 % (0.0-1.0); EOS # 0.2 10^3/uL (0.0-0.50); EOS % 2.7 % (0.0-3.0); IMMATURE GRANULOCYTE % 0.3 % (0-0); LYMPH # 2.7 10^3/uL (1.5-6.5); MEAN CORPUSCULAR HEMOGLOBIN 30.9 pg (27.0-33.0); MEAN CORPUSCULAR HGB CONC 32.8 g/dl (32.0-36.5); MEAN CORPUSCULAR VOLUME 94.1 fl (80.0-96.0); MONO # 0.6 10^3/uL (0.0-0.8); MONO % 7.3 % (0.0-5.0); NEUTROPHILS # 4.3 10^3/uL (1.8-7.7); NEUTROPHILS % 55.1 % (36.0-66.0); PLATELET COUNT, AUTOMATED 382 10^3/uL (150-450); WHITE BLOOD COUNT 7.8 10^3/uL (4.0-10.0)
[2017-10-12] MEDS ORDERED: ONDANSETRON 4MG/2ML VIAL (J2405) IV ONE (02:00)
[2017-10-12 02:06] LABS: CONTROL LINE HCG INT CTR LINE PRESENT
[2017-10-12 02:10] LABS: ANION GAP 6 MEQ/L (8-16); BLOOD UREA NITROGEN 9 MG/DL (7-18); CALCIUM LEVEL 8.8 MG/DL (8.5-10.1); CARBON DIOXIDE LEVEL 29 MEQ/L (21-32); CHLORIDE LEVEL 110 MEQ/L (98-107); CREATININE FOR GFR 0.63 MG/DL (0.55-1.02); GLOMERULAR FILTRATION RATE > 60.0 (>60); GLUCOSE, FASTING 79 MG/DL (70-105); POTASSIUM SERUM 3.7 MEQ/L (3.5-5.1); SODIUM LEVEL 145 MEQ/L (136-145)
[2017-10-12] MEDS ORDERED: metroNIDAZOLE (FLAGYL) 500 MG TAB PO ONE (02:30)
[2017-10-12] MEDS ORDERED: ONDANSETRON 4 MG ORAL DISINTEGRATING TAB (S0181) PO ONE (03:15)
== END 2017-10-12 03:53 | disposition home or self-care (01) ==
LOC: M ED 00:42
DX: A59.01 Trichomonal vulvovaginitis (principal); F41.9 Anxiety disorder, unspecified; F17.210 Nicotine dependence, cigarettes, uncomplicated; Z88.0 Allergy status to penicillin; Z88.5 Allergy status to narcotic agent; Z88.8 Allergy status to other drugs, medicaments and biological substances; Z87.442 Personal history of urinary calculi; Z97.5 Presence of (intrauterine) contraceptive device; Z98.890 Other specified postprocedural states
CPT/HCPCS: 80048; 84703; 85025; 87210; 87491; 87591; 96374; 96375; 99284; J2405

== ENCOUNTER 2017-10-19 21:16 | Emergency (ER) | payer BC ==
[~2017-10-19] VITALS: Ht 165.1 cm; Wt 86.4 kg
[2017-10-19] MEDS ORDERED: SM E (21:58)
[2017-10-19] MEDS ORDERED: BUPR150T3 (21:58)
[2017-10-19] MEDS ORDERED: AMIT25TA (21:58)
[2017-10-19] MEDS ORDERED: ONDANSETRON 4MG/2ML VIAL (J2405) IV ONE (23:00)
[2017-10-19] MEDS ORDERED: MORPHINE 4 MG/ML 1ML SYRINGE IV PRN (23:00)
[2017-10-19] MEDS ORDERED: NS 1,000 ML IV ONE (23:00)
[2017-10-19 23:19] LABS: BASO # 0.1 10^3/uL (0.0-0.2); BASO % 0.7 % (0.0-1.0); EOS # 0.1 10^3/uL (0.0-0.50); EOS % 1.3 % (0.0-3.0); IMMATURE GRANULOCYTE % 0.2 % (0-0); LYMPH # 2.9 10^3/uL (1.5-6.5); MEAN CORPUSCULAR HEMOGLOBIN 30.7 pg (27.0-33.0); MEAN CORPUSCULAR HGB CONC 32.8 g/dl (32.0-36.5); MEAN CORPUSCULAR VOLUME 93.7 fl (80.0-96.0); MONO # 0.5 10^3/uL (0.0-0.8); MONO % 5.9 % (0.0-5.0); NEUTROPHILS # 5.1 10^3/uL (1.8-7.7); NEUTROPHILS % 58.9 % (36.0-66.0); PLATELET COUNT, AUTOMATED 437 10^3/uL (150-450); RED CELL DISTRIBUTION WIDTH 12.9 % (11.5-14.5); WHITE BLOOD COUNT 8.7 10^3/uL (4.0-10.0)
[2017-10-19 23:41] LABS: ALBUMIN 4.3 GM/DL (3.2-5.2); ALKALINE PHOSPHATASE 94 U/L (45-117); ALT/SGPT 18 U/L (12-78); ANION GAP 4 MEQ/L (8-16); AST/SGOT 9 U/L (7-37); BILIRUBIN,DIRECT 0.1 MG/DL (0.0-0.2); BILIRUBIN,TOTAL 0.4 MG/DL (0.2-1.0); BLOOD UREA NITROGEN 8 MG/DL (7-18); CALCIUM LEVEL 9.1 MG/DL (8.5-10.1); CARBON DIOXIDE LEVEL 29 MEQ/L (21-32); CHLORIDE LEVEL 107 MEQ/L (98-107); CREATININE FOR GFR 0.65 MG/DL (0.55-1.02); GLOMERULAR FILTRATION RATE > 60.0 (>60); GLUCOSE, FASTING 85 MG/DL (70-105); SODIUM LEVEL 140 MEQ/L (136-145); TOTAL PROTEIN 8.2 GM/DL (6.4-8.2)
[2017-10-20] MEDS ORDERED: MAALOX 30 ML SUSP *UDC PO ONE
[2017-10-20] MEDS ORDERED: PANTOPRAZOLE 40MG INJ (PROTONIX) (C9113) IV ONE
[2017-10-20] MEDS ORDERED: SIME1CAP PO (01:10)
[2017-10-20] MEDS ORDERED: PROT1TAB2 PO (01:10)
[2017-10-20] MEDS ORDERED: CARA1TAB6 PO (01:10)
[2017-10-20] MEDS ORDERED: NORCO, ANEXSIA 5/325MG TABLET (HYDROcodone/ACETAMINOPHEN) PO ONE (01:15)
[2017-10-20 01:17] VITALS: BP 122/73
== END 2017-10-20 01:31 | disposition home or self-care (01) ==
LOC: M ED 21:16
DX: K29.00 Acute gastritis without bleeding (principal); Z72.0 Tobacco use
CPT/HCPCS: 36415; 80048; 80076; 81001; 83605; 83690; 85025; 87086; 96361; 96374; 96375; 99284; C9113; J2405

== ENCOUNTER 2017-11-16 17:56 | Emergency (ER) | payer BC ==
[~2017-11-16] VITALS: Ht 165.1 cm; Wt 86.9 kg
[~2017-11-16 17:56] MED LIST changes: +AMIT25TA; +BUPR150T3; +CARA1TAB6 PO; +PROT1TAB2 PO; +SIME1CAP PO; +SM E
[2017-11-16] MEDS: GASTROGRAFIN SOLUTION 30ML PO ONE (19:10)
[2017-11-16 19:11] LABS: MUCUS, URINE RFX MODERATE (NEGATIVE); SPECIFIC GRAVITY UR AUTO RFX 1.024 (1.002-1.035); SQUAM EPITHELIAL CELL UR AURFX 1 /HPF (0-6)
[2017-11-16 19:30] LABS: BASO % 0.7 % (0.0-1.0); EOS # 0.1 10^3/uL (0.0-0.50); EOS % 1.5 % (0.0-3.0); IMMATURE GRANULOCYTE % 0.2 % (0-0); LYMPH # 1.9 10^3/uL (1.5-6.5); LYMPH % 31.5 % (24.0-44.0); MEAN CORPUSCULAR HEMOGLOBIN 30.7 pg (27.0-33.0); MEAN CORPUSCULAR HGB CONC 32.8 g/dl (32.0-36.5); MEAN CORPUSCULAR VOLUME 93.4 fl (80.0-96.0); MONO # 0.4 10^3/uL (0.0-0.8); MONO % 7.2 % (0.0-5.0); NEUTROPHILS # 3.6 10^3/uL (1.8-7.7); NEUTROPHILS % 58.9 % (36.0-66.0); PLATELET COUNT, AUTOMATED 381 10^3/uL (150-450); RED CELL DISTRIBUTION WIDTH 12.6 % (11.5-14.5); WHITE BLOOD COUNT 6.1 10^3/uL (4.0-10.0)
[2017-11-16] MEDS: GASTROGRAFIN SOLUTION 30ML (Q9963) PO ONE (19:40)
[2017-11-16] MEDS: KETOROLAC 30 MG/ML VIAL (J1885) IV ONE (20:07)
[2017-11-16] MEDS: ONDANSETRON 4MG/2ML VIAL (J2405) IV ONE (20:07)
[2017-11-16 20:42] LABS: ALBUMIN/GLOBULIN RATIO 1.21 (1.00-1.93); ALKALINE PHOSPHATASE 77 U/L (45-117); ALT/SGPT 18 U/L (12-78); AMYLASE 34 U/L (25-115); ANION GAP 4 MEQ/L (8-16); AST/SGOT 21 U/L (7-37); BILIRUBIN,TOTAL 0.7 MG/DL (0.2-1.0); BLOOD UREA NITROGEN 8 MG/DL (7-18); CALCIUM LEVEL 8.7 MG/DL (8.5-10.1); CARBON DIOXIDE LEVEL 27 MEQ/L (21-32); CHLORIDE LEVEL 109 MEQ/L (98-107); CREATININE FOR GFR 0.65 MG/DL (0.55-1.02); GLOMERULAR FILTRATION RATE > 60.0 (>60); GLUCOSE, FASTING 81 MG/DL (70-105); POTASSIUM SERUM 4.6 MEQ/L (3.5-5.1); SODIUM LEVEL 140 MEQ/L (136-145); TOTAL PROTEIN 7.3 GM/DL (6.4-8.2)
[2017-11-16] MEDS ORDERED: ISOVUE-370 76% 100ML VIAL (Q9967) As Ordered ONE (20:47)
--- NOTE | 2017-11-16 21:30 | REPUSA ---
CT of the abdomen and pelvis with contrast Clinical statement: Pain. Technique: Multiple axial CT images were obtained from the base of the lungs through the floor of the pelvis utilizing 5 mm axial slices after administration of nonionic intravenous contrast. Coronal an d sagittal reconstructions were also obtained. Comparison: 10/10/2017. Findings: Chest: The visualized lung bases are clear. Abdomen: The liver, spleen, pancreas, kidneys, gallbladder, and adrenal glands are unremarkable. The aorta is within normal limits. There is no evidence of abdominal lymphadenopathy or ascites. Pelvis: The bowel is unremarkable, with no obstructive or inflammatory changes. The appendix is margaret l. The urinary bladder is within normal limits. There is a new large simple left ovarian cyst measuri ng 3.5 x 2.2 cm. IUD is in place within the uterus. The other pelvic structures appear grossly intact . There is no evidence of pelvic lymphadenopathy or ascites. Bones: There are no suspicious osseous abnormalities seen. Impression: 1. New large left ovarian cyst. Follow-up is recommended as clinically indicated. 2. No obstructive or inflammatory bowel changes.
[2017-11-16] MEDS ORDERED: NAPR500T PO (21:35)
[2017-11-16 21:38] VITALS: BP 108/65
[2017-11-16] MEDS: ACETAMINOPHEN 325 MG TAB PO ONE (21:47)
== END 2017-11-16 21:53 | disposition home or self-care (01) ==
LOC: M ED 17:56
DX: N83.202 Unspecified ovarian cyst, left side (principal); F41.9 Anxiety disorder, unspecified; F33.9 Major depressive disorder, recurrent, unspecified; F17.210 Nicotine dependence, cigarettes, uncomplicated; Z79.899 Other long term (current) drug therapy; Z88.8 Allergy status to other drugs, medicaments and biological substances; Z88.0 Allergy status to penicillin; Z88.5 Allergy status to narcotic agent; Z97.5 Presence of (intrauterine) contraceptive device; Z98.890 Other specified postprocedural states; Z87.442 Personal history of urinary calculi
CPT/HCPCS: 74177; 80053; 81001; 81025; 82150; 83690; 85025; 86140; 96374; 96375; 99284; J1885; J2405; Q9963; Q9967

== ENCOUNTER 2017-12-08 21:43 | Emergency (ER) | payer BC | END 2017-12-08 23:11 | disposition left against medical advice (07) | LOC: M ED 21:43 | DX: Z53.21 Procedure and treatment not carried out due to patient leaving prior to being seen by health care provider (principal) ==

== ENCOUNTER 2017-12-25 00:45 | Emergency (ER) | payer BC ==
[2017-12-25] MEDS: IBUPROFEN 600 MG TAB PO (04:15)
== END 2017-12-25 04:34 | disposition home or self-care (01) ==
LOC: M ED 00:45
DX: R07.89 Other chest pain (principal); R05 Cough; E66.9 Obesity, unspecified; Z88.0 Allergy status to penicillin; Z88.5 Allergy status to narcotic agent; Z88.8 Allergy status to other drugs, medicaments and biological substances
CPT/HCPCS: 99283

== ENCOUNTER 2018-02-17 14:56 | Emergency (ER) | payer BC ==
[2018-02-17 15:37] LABS: KETONE, URINE AUTO RFX NEGATIVE (NEGATIVE); LEUKOCYTE ESTERASE UR AUTO RFX NEGATIVE (NEGATIVE); MUCUS, URINE RFX SMALL (NEGATIVE); NITRITE, URINE AUTO RFX NEGATIVE (NEGATIVE); RBC, URINE AUTO RFX 0 /HPF (0-3); SPECIFIC GRAVITY UR AUTO RFX 1.008 (1.002-1.035); SQUAM EPITHELIAL CELL UR AURFX 0 /HPF (0-6); WBC, URINE AUTO RFX 0 /HPF (0-3)
[2018-02-17] MEDS: NS 1,000 ML IV (16:03)
[2018-02-17] MEDS: ONDANSETRON 4MG/2ML VIAL (J2405) IV (16:06)
[2018-02-17 16:10] LABS: HEMATOCRIT 40.2 % (36.0-47.0); HEMOGLOBIN 13.4 g/dl (12.0-16.0); MEAN CORPUSCULAR HEMOGLOBIN 31.1 pg (27.0-33.0); MEAN CORPUSCULAR HGB CONC 33.3 g/dl (32.0-36.5); MEAN CORPUSCULAR VOLUME 93.3 fl (80.0-96.0); PLATELET COUNT, AUTOMATED 409 10^3/uL (150-450); RED BLOOD COUNT 4.31 10^6/uL (4.00-5.40); RED CELL DISTRIBUTION WIDTH 12.4 % (11.5-14.5); WHITE BLOOD COUNT 5.6 10^3/uL (4.0-10.0)
[2018-02-17 16:22] LABS: CONTROL LINE HCG INT CTR LINE PRESENT; HCG, SERUM QUALITATIVE NEGATIVE (NEGATIVE)
[2018-02-17 16:27] LABS: ANION GAP 6 MEQ/L (8-16); BLOOD UREA NITROGEN 7 MG/DL (7-18); CARBON DIOXIDE LEVEL 26 MEQ/L (21-32); CHLORIDE LEVEL 109 MEQ/L (98-107); CREATININE FOR GFR 0.65 MG/DL (0.55-1.30); GLOMERULAR FILTRATION RATE > 60.0 (>60); GLUCOSE, FASTING 86 MG/DL (70-100); POTASSIUM SERUM 4.1 MEQ/L (3.5-5.1); SODIUM LEVEL 141 MEQ/L (136-145)
== END 2018-02-17 17:12 | disposition home or self-care (01) ==
LOC: M ED 14:56
DX: R10.9 Unspecified abdominal pain (principal); Z87.442 Personal history of urinary calculi; F17.200 Nicotine dependence, unspecified, uncomplicated; Z88.8 Allergy status to other drugs, medicaments and biological substances; Z88.0 Allergy status to penicillin; Z88.5 Allergy status to narcotic agent
CPT/HCPCS: J2405

== ENCOUNTER → 2018-02-25 | Outpatient (CLI) | payer BC, MEDICAID, OTHER ==
[2018-02-25 13:10] LABS: CONTROL LINE HCG INT CTR LINE PRESENT; HCG, SERUM QUALITATIVE NEGATIVE (NEGATIVE)
== END ==
LOC: M LAB 12:17
DX: R10.9 Unspecified abdominal pain (principal)

== ENCOUNTER 2018-03-15 11:54 | Emergency (ER) | payer BC, MEDICAID ==
[2018-03-15] MEDS: KETOROLAC 60 MG/2 ML VIAL (J1885) IM (12:37)
== END 2018-03-15 13:19 | disposition home or self-care (01) ==
LOC: M ED 11:54
DX: M54.5 Low back pain (principal); G89.29 Other chronic pain; M51.9 Unspecified thoracic, thoracolumbar and lumbosacral intervertebral disc disorder; Z88.8 Allergy status to other drugs, medicaments and biological substances; Z88.5 Allergy status to narcotic agent; Z88.0 Allergy status to penicillin
CPT/HCPCS: J1885

== ENCOUNTER 2018-07-16 21:34 | Emergency (ER) | payer SELFPAY, BC, OTHER | END 2018-07-17 01:36 | disposition left against medical advice (07) | LOC: M ED 21:34 | DX: Z53.21 Procedure and treatment not carried out due to patient leaving prior to being seen by health care provider (principal) ==

== ENCOUNTER 2018-07-19 17:02 | Emergency (ER) | payer BC, SELFPAY ==
[2018-07-19 17:49] LABS: BASO # 0.1 10^3/uL (0.0-0.2); BASO % 0.8 % (0.0-1.0); EOS # 0.1 10^3/uL (0.0-0.50); EOS % 1.3 % (0.0-3.0); HEMATOCRIT 40.7 % (36.0-47.0); HEMOGLOBIN 13.5 g/dl (12.0-15.5); IMMATURE GRANULOCYTE % 0.3 % (0-3.0); LYMPH # 2.3 10^3/uL (1.5-6.5); LYMPH % 28.8 % (24.0-44.0); MEAN CORPUSCULAR HGB CONC 33.2 g/dl (32.0-36.5); MEAN CORPUSCULAR VOLUME 93.3 fl (80.0-96.0); MONO # 0.5 10^3/uL (0.0-0.8); MONO % 6.9 % (0.0-5.0); NEUTROPHILS # 4.9 10^3/uL (1.8-7.7); NEUTROPHILS % 61.9 % (36.0-66.0); PLATELET COUNT, AUTOMATED 416 10^3/uL (150-450); RED BLOOD COUNT 4.36 10^6/uL (4.00-5.40); WHITE BLOOD COUNT 7.8 10^3/uL (4.0-10.0)
[2018-07-19 18:22] LABS: HCG, SERUM QUANTITATIVE 15 MIU/ML
[2018-07-19] MEDS: ACETAMINOPHEN 325 MG TAB PO (18:31)
[2018-07-19 20:01] LABS: CHLAMYDIA DNA AMPLIFICATION NEGATIVE (NEGATIVE); GC DNA AMPLIFICATION NEGATIVE (NEGATIVE)
[2018-07-19 20:21] LABS: KETONE, URINE AUTO RFX NEGATIVE (NEGATIVE); LEUKOCYTE ESTERASE UR AUTO RFX NEGATIVE (NEGATIVE); MUCUS, URINE RFX SMALL (NEGATIVE); NITRITE, URINE AUTO RFX NEGATIVE (NEGATIVE); RBC, URINE AUTO RFX 21 /HPF (0-3); SPECIFIC GRAVITY UR AUTO RFX 1.023 (1.002-1.035); SQUAM EPITHELIAL CELL UR AURFX 0 /HPF (0-6); WBC, URINE AUTO RFX 1 /HPF (0-3)
== END 2018-07-19 21:04 | disposition home or self-care (01) ==
LOC: M ED 17:02
DX: O20.0 Threatened abortion (principal); O99.619 Diseases of the digestive system complicating pregnancy, unspecified trimester; Z87.442 Personal history of urinary calculi; O99.340 Other mental disorders complicating pregnancy, unspecified trimester; Z87.891 Personal history of nicotine dependence; Z88.0 Allergy status to penicillin; Z88.5 Allergy status to narcotic agent; Z88.8 Allergy status to other drugs, medicaments and biological substances
CPT/HCPCS: 76801

== ENCOUNTER → 2018-07-21 | Outpatient (CLI) | payer BC, OTHER ==
[2018-07-21 14:11] LABS: HCG, SERUM QUANTITATIVE 3 MIU/ML
== END ==
LOC: M LAB 12:38
DX: O20.0 Threatened abortion (principal); Z3A.00 Weeks of gestation of pregnancy not specified
CPT/HCPCS: 84702

== ENCOUNTER 2019-11-01 17:26 | Emergency (ER) | payer BC, OTHER ==
[~2019-11-01] VITALS: Ht 165.1 cm; Wt 89.1 kg
[~2019-11-01 17:26] MED LIST changes: -ACET50TA PO; +CYCL10TA PO; +FLOM0.4C39 PO; -FLOM5CAP PO; +HYDR-3715 PO; +MAPA500T2 PO; +NAPR-837 PO; -NORCOTAB PO; -OMEP40CA2 PO; +OMEP40CA97 PO; -SM E; +SM E1DRO2; +ZOFR4TAB14 PO; -ZOFR4TAB3 PO
[2019-11-01] MEDS ORDERED: CYCL10TA PO (18:28)
[2019-11-01] MEDS ORDERED: IBUP-1022 PO (18:28)
[2019-11-01] MEDS ORDERED: KETOROLAC 60 MG/2 ML VIAL (J1885) IM ONE (18:30)
[2019-11-01] MEDS ORDERED: diazePAM 10 MG/2 ML INJ (J3360) IM ONE (18:30)
[2019-11-01 19:09] VITALS: BP 110/60
== END 2019-11-01 19:10 | disposition home or self-care (01) ==
LOC: M ED 17:26
DX: S39.012A Strain of muscle, fascia and tendon of lower back, initial encounter (principal); X58.XXXA Exposure to other specified factors, initial encounter; Y92.89 Other specified places as the place of occurrence of the external cause; K21.9 Gastro-esophageal reflux disease without esophagitis; F17.210 Nicotine dependence, cigarettes, uncomplicated; Z88.0 Allergy status to penicillin; Z88.8 Allergy status to other drugs, medicaments and biological substances; Z88.5 Allergy status to narcotic agent
CPT/HCPCS: 96372; 99283; J1885; J3360